=== PATIENT | male | born 1975 | race Caucasian/White ===

== ENCOUNTER 2016-11-14 22:39 | Emergency (ER) | payer BC ==
[~2016-11-14] VITALS: Ht 180.3 cm; Wt 113.4 kg
[2016-11-14 22:40] VITALS: BP 134/86
--- NOTE | 2016-11-14 23:21 | PHYS DOC ---
Past History Past Medical History: Diabetes, High Cholesterol Additional Past Medical Histor: Tremors Past Surgical History: No Surgical History Smoking: Non-smoker Alcohol Use: None Drug Use: None Adult General Chief Complaint Chief Complaint: COUGH HPI HPI Patient is a 41 year old male who presents with fever and cough. He started with cough on Sunday, Fever on Sunday up to 102. Tonight he is "aching all over" and has back pain. No urinary complaints. Nausea but no vomiting. Today he has had 3 loose stools. He took motrin at 2100 PM tonight but no tylenol. 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 "I have to take a test and I can't miss any classes or I flunk." Tonight his temperature was 103 at 2130 PM. No rash. Review of Systems Review of Systems Constitutional: Has fever and chills Eyes: Denies change in visual acuity, redness, or eye pain HENT: Denies nasal congestion or sore throat Respiratory: cough but no shortness of breath Cardiovascular: No chest pain GI: Denies abdominal pain, some nausea, no vomiting, no bloody stools few loose stools : Denies dysuria or hematuria Musculoskeletal: back pain and joint pain all over Integument: Denies rash or skin lesions Neurologic: Denies headache, focal weakness or sensory changes Endocrine: Denies polyuria or polydipsia. New diabetic meds started one month ago. Current Medications Current Medications Current Medications Medications (Trade) Dose Ordered Sig/[facility] Start Time Stop Time Status Last Admin Dose Admin Acetaminophen (Tylenol) 1,000 mg 1X ONCE 11/14/16 23:15 11/14/16 23:16 UNV Physical Exam Physical Exam Constitutional: Well developed, well nourished, no acute distress, non-toxic appearance. HENT: Normocephalic, atraumatic, bilateral external ears normal, oropharynx moist, no oral exudates, nose normal. Eyes: PERRLA, EOMI, conjunctiva normal, no discharge. Neck: Normal range of motion, no tenderness, supple, no stridor. Cardiovascular:Heart rate regular rhythm, no murmur Lungs & Thorax: Bilateral breath sounds clear to auscultation Abdomen: Bowel sounds normal, soft, no tenderness, no masses, no pulsatile masses. Skin: Warm, dry, no erythema, no rash. Back: No tenderness, no CVA tenderness. Extremities: No tenderness, no cyanosis, no clubbing, ROM intact, no edema. Neurologic: Alert and oriented X 3, normal motor function, normal sensory function, no focal deficits noted. Psychologic: Affect normal, judgement normal, mood normal. Current Patient Data Vital Signs Vital Signs Date Time Temp Pulse Resp B/P (MAP) Pulse Ox O2 Delivery O2 Flow Rate FiO2 11/14/16 22:40 98.5 110 20 97 Room Air BP 134/86 Lab Results Laboratory Tests Test 11/14/16 23:10 Urine Collection Type Unknown Urine Color Yellow Urine Clarity Clear Urine pH 5.0 Urine Specific Ewing 1.020 Urine Protein Neg Urine Glucose (UA) Neg mg/dL Urine Ketones (Stick) Trace mg/dL Urine Blood Mod Urine Nitrite Neg Urine Bilirubin Neg Urine Urobilinogen Dipstick 0.2 mg/dL Urine Leukocyte Esterase Neg Urine RBC 0 /HPF Urine WBC Occ /HPF Urine Squamous Epithelial Cells None /LPF Urine Bacteria Few /HPF Current Medications Medications (Trade) Dose Ordered Sig/Sarah Route PRN Reason Start Time Stop Time Status Last Admin Dose Admin Acetaminophen (Tylenol) 1,000 mg 1X ONCE PO 11/14/16 23:30 11/14/16 23:31 DC 11/14/16 23:30 Current Medications Medications (Trade) Dose Ordered Sig/Saarh Route PRN Reason Start Time Stop Time Status Last Admin Dose Admin Acetaminophen (Tylenol) 1,000 mg 1X ONCE PO 11/14/16 23:15 11/14/16 23:16 UNV Radiology/Procedures Radiology/Procedures CXR by my interpretation : no acute consolidation; atelec RLL. No pneumothorax Course & Med Decision Making Course & Med Decision Making Pertinent Labs and Imaging studies reviewed. (See chart for details) UA with tr ketones and WBC. Will start Levaquin (cover urine and lungs) here in ED and zofran. Dragon Disclaimer Dragon Disclaimer This chart was dictated in whole or in part using Voice Recognition software in a busy, high-work load, and often noisy Emergency Department environment. It may contain unintended and wholly unrecognized errors or omissions. Departure Departure: Impression: Primary Impression: Pneumonitis Disposition: HOME, SELF-CARE Condition: GOOD Referrals: PCP,NO (PCP) Scripts Guaifenesin/D-Methorphan Hb/Pe (TUSSIN CF LIQUID) 237 Ml Liquid 237 ML PO Q4-6HRS Y for COUGH, #120 LIQUID Prov: REMINGTON WOOD MD 11/14/16 Ondansetron (ZOFRAN ODT) 8 Mg Tab.rapdis 8 MG PO TID PRN Y for NAUSEA, #10 Prov: REMINGTON WOOD MD 11/14/16 Levofloxacin (LEVAQUIN) 500 Mg Tablet 500 MG PO DAILY for 7 Days, #7 TAB Prov: REMINGTON WOOD MD 11/14/16 REMINGTON WOOD MD November 14, 2016 23:21
[2016-11-14] MEDS ORDERED: ACETAMINOPHEN 500 MG TABLET PO ONE (23:30)
[2016-11-14 23:44] LABS: BACTERIA,URINE FEW /HPF (0-FEW); BILIRUBIN,URINE NEG (NEG); CLARITY,URINE CLEAR; COLOR,URINE YELLOW; GLUCOSE,URINE NEG (NEG); NITRITE,URINE NEG (NEG); RBC,URINE 0 /HPF (0-2); UROBILINOGEN,URINE 0.2 mg/dL (0.2 mg/dL); WBC,URINE OCC /HPF (0-4)
[2016-11-14] MEDS ORDERED: ONDA8TAB12 PO (23:52)
[2016-11-14] MEDS ORDERED: GUAI237L38 PO (23:52)
[2016-11-14] MEDS ORDERED: LEVO500T59 PO (23:52)
[2016-11-15] MEDS ORDERED: levoFLOXacin 500 MG TABLET PO ONE (00:15)
[2016-11-15] MEDS ORDERED: ONDANSETRON 4MG ODT 4TABLET STARTPACK. PO ONE (00:15)
--- NOTE | 2016-11-15 07:41 | RAD ---
Portable chest, 11/14/2016: History: Cough and fever The patient positioning is lordotic. The heart size and pulmonary vascularity are normal. No pulmonary or infiltrates are seen. There is no evidence of pleural fluid. IMPRESSION: No acute cardiopulmonary abnormality is detected.
== END 2016-11-14 23:55 | disposition home or self-care (01) ==
LOC: ER 22:39
DX: J18.9 Pneumonia, unspecified organism (principal); E11.9 Type 2 diabetes mellitus without complications; E78.00 Pure hypercholesterolemia, unspecified
CPT/HCPCS: 71010; 81001; 99285; Q0162